=== PATIENT | female | born 1985 | race Caucasian/White ===

== ENCOUNTER 2017-06-14 20:22 | Emergency (ER) | payer SELFPAY ==
[~2017-06-14] VITALS: Ht 180.3 cm; Wt 84.8 kg
--- NOTE | ~2017-06-14 | CR94 ---
[facility]. [facility] A Service of [facility] & [facility] - [place] RADIOLOGY TEXT RESULTS PATIENT: TIANNA EPPERSON LOCATION: SED : 89 UNIT #: [id number] AGE: [address]: Lori Cantrell SEX: F ORDER DR: [id number] [address] [address] [id number] E MR#: [id number] Acc #: [id number] NAME: TIANNA EPPERSON : 1985 SEX: F STUDY DATE/TIME: 06/14/2017 21:13 UNIT: SED ROOM: STUDY DESCRIPTION: CR Elbow Min 3 Views Rt Attending Physician: Lori Cantrell Pa-C Ordering Physician: Lori Cantrell Pa-C Primary Care Physician: Risa Tran A.P.R.N. MEDICAL IMAGING REPORT This report is preliminary unless electronic signature is present. EXAM Right elbow, 3 views. HISTORY Elbow pain after a fall today. FINDINGS AP and lateral examination of the elbow shows satisfactory articulation of the humerus with the proximal radius and ulna. There is no identifiable fracture, dislocation, joint effusion, or radiopaque foreign body in the soft tissues. IMPRESSION Normal elbow. Dictated by... Ritesh Miller M.D. THIS IS AN ELECTRONICALLY VERIFIED REPORT Ritesh Miller M.D. at 06/15/2017 4:12 PM DFL/frances TD: 06/15/2017 09:48 JOB #: [id number] MEDICAL IMAGING REPORT Page 1 of 1
[~2017-06-14 20:22] MED LIST: ACETAMINOPHEN; ALBUTEROL17 GM INH; ANTIBIOTIC; AZO1 STRIP; BIRTH CONTROL PILL; CIPRO PO; FLEXERIL10 MG PO; HYDROCODON-ACE1 EAC7 PO; LOVENOX40 MG/0.4 INJ; LUPRON; MACROBID100 MG PO; NAPROSYN500 MG PO; NAPROXEN PO; NO MEDICATIONS; PEN-VEE K PO; PHENERGAN PO; PHENERGAN25 M1 PO; PRENATAL1 TA1 PO; PRILOSEC PO; PRILOSEC20 MG PO; PYRIDIUM PO; TYLENOL #3; TYLENOL #3 PO; TYLENOL325 M1; VICODIN 5/500 T1 TAB PO; VICODIN PO; ZOFRAN ODT4 MG; ZOFRAN ODT4 MG PO
== END 2017-06-14 22:51 | disposition home or self-care (01) ==
LOC: SED 20:22
DX: S50.01XA Contusion of right elbow, initial encounter (principal); M54.9 Dorsalgia, unspecified; M25.511 Pain in right shoulder; Z88.2 Allergy status to sulfonamides; W01.0XXA Fall on same level from slipping, tripping and stumbling without subsequent striking against object, initial encounter; Y92.481 Parking lot as the place of occurrence of the external cause
CPT/HCPCS: 73080; 99283